=== PATIENT | female | born 1980 | race Asian ===

== ENCOUNTER 2022-02-19 21:15 | Emergency (ER) | payer OTHER ==
[~2022-02-19] VITALS: Ht 162.6 cm; Wt 55.8 kg
--- NOTE | 2022-02-19 21:20 | NUR ---
BIBS FOR C/O ALLERGIC REACTION, FACIAL REDFNEESS AND HIVES POSSIBLY TO SPICES X 45 MIN, TOOK 2 BENADRYL PO FLOOR PERSON. PATIENT ALERT AND ORIENTED X3. AMBULATORY AND ON A MONITOR AND POX.
[2022-02-19] MEDS ORDERED: methylPREDNISolone SOD SUCC 125 MG/2ML VIAL IV ONE (21:30)
[2022-02-19] MEDS ORDERED: EPINEPHRINE (1:1000) MDV 30 MG/30ML VIAL IM ONE (21:30)
[2022-02-19] MEDS ORDERED: FAMOTIDINE/PF INJ 20 MG/2 ML VIAL IV ONE ×2 (21:30→21:34)
[2022-02-19] MEDS ORDERED: EPINEPHRINE (1:1000) 1 MG/ML AMPUL ONE (21:33)
[2022-02-19] MEDS ORDERED: methylPREDNISolone SOD SUCC 125 MG/2ML VIAL ONE (21:33)
[2022-02-19] MEDS ORDERED: EPIN0.3P3 IM (22:40)
[2022-02-19] MEDS ORDERED: FAMO-131 PO (22:40)
[2022-02-19] MEDS ORDERED: PRED20TA PO (22:40)
[2022-02-20 01:15] VITALS: BP 135/87
--- NOTE | 2022-02-20 01:15 | NUR ---
Patient discharged to home in stable condition. Written and verbal after care instructions given. Patient verbalizes understanding of instruction.
== END 2022-02-20 01:16 | disposition home or self-care (01) ==
LOC: ER 21:17
DX: T78.09XA Anaphylactic reaction due to other food products, initial encounter (principal); J45.909 Unspecified asthma, uncomplicated; Z91.018 Allergy to other foods; Z60.2 Problems related to living alone; Z79.899 Other long term (current) drug therapy
CPT/HCPCS: 96372; 96374; 96375; 99291; J0171 ×2; J2930; J3490